=== PATIENT | female | born 1995 | race Caucasian/White ===

== ENCOUNTER 2019-01-22 16:38 | Emergency (ER) | payer MEDICAID, OTHER ==
[2019-01-22] MEDS ORDERED: traMADol 50 MG Tab ONE (17:15)
--- NOTE | 2019-01-23 01:02 | ER ---
HPI: A 23-year-old female here with complaints of injuring her left ankle last evening. She was at a [employer] when one of her friends fell on her ankle. She was wearing heels and tells me that she twisted her ankle. She continues to have swelling and pain today. She has been resting, but tells me it is not getting much better. She has applied ice a couple of times. She has not taken any ibuprofen or Tylenol. She denies any other injuries. OBJECTIVE: GENERAL APPEARANCE: The patient is awake and alert, in no obvious distress. VITAL SIGNS: Reviewed as listed. EXTREMITIES: Examining the left ankle reveals mild swelling around the lateral malleolus. The skin is intact. This is the area of tenderness. There is no pain with palpation of the anterior, posterior, or medial side of the ankle. The mid and distal foot are nontender as well. LAB AND X-RAY: An x-ray of the left ankle was obtained. There is a distal fibular fracture with minimal displacement. DIAGNOSIS: Fibular fracture. TREATMENT PLAN: A walking Cam will be given to the patient. She has made arrangements for crutches. She is to be nonweightbearing for at least 2 weeks and this will change as her healing process takes place and guided by her primary care provider. RICE therapy was discussed. She is to use ibuprofen 600 mg 3 times a day. I will give her some Ultram tablets to take as needed. I do want the patient to recheck in the clinic in approximately 1 week, sooner of course as needed. KENJI/BOB /[id number]
--- NOTE | 2019-01-23 07:21 | CR ---
Date of Service: 01/22/19 Clinical Data: injury - fell 1 day ago. LEFT ANKLE: There is moderate soft tissue swelling over the lateral malleolus. There is a minimally displaced oblique fracture through the distal fibular metaphysis. No other acute abnormalities. [id number] MTDD
== END 2019-01-22 17:45 | disposition home or self-care (01) ==
LOC: LB.ED 16:38
DX: S82.832A Other fracture of upper and lower end of left fibula, initial encounter for closed fracture (principal); W50.0XXA Accidental hit or strike by another person, initial encounter
CPT/HCPCS: 73600; 99283; A9270